=== PATIENT | male | born 1985 ===

== ENCOUNTER 2018-08-02 14:24 | Emergency (ER) | payer OTHER ==
[2018-08-02 14:38] VITALS: BP 140/89
--- NOTE | 2018-08-02 15:17 | ED ---
Skin Complaint - HPI Summary HPI Summary: Patient presents with laceration to lower forehead at about 1300 today. 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 He had mild bleeding which stopped after cleaning and applying pressure. He does have mild soreness and focal tenderness in the area with touch only. Denies loss of consciousness, change in headache (had a headache when he woke up this morning), change in vision, nausea, vomiting, numbness, tingling, weakness, dizziness, near- syncope. He has not tried any [id number] pain medication or ice but he reports he did wash this with alcohol after injury. His immunizations are up-to -date. No other injuries nor symptoms to report. - History of Current Complaint Chief Complaint: UCLaceration Time Seen by Provider: 08/02/18 14:58 Stated Complaint: FACE LAC Hx Obtained From: Patient Pain Intensity: 0 - Allergy/Home Medications Allergies/Adverse Reactions: Allergies Allergy/AdvReac Type Severity Reaction Status Date / Time No Known Allergies Allergy Verified 08/02/18 14:38 Home Medications: Home Medications NK [No Home Medications Reported] 08/02/18 [History Confirmed 08/02/18] PMH/Surg Hx/FS Hx/Imm Hx Previously Healthy: Yes Endocrine/Hematology History: Denies: Hx Anticoagulant Therapy, Hx Blood Disorders, Hx Diabetes, Hx Thyroid Disease, Autoimmune Disease Cardiovascular History: Denies: Hx Hypertension Respiratory History: Denies: Hx Asthma, Hx Chronic Obstructive Pulmonary Disease (COPD) GI History: Denies: Hx Ulcer - Surgical History Surgery Procedure, Year, and Place: vericose vein on groin - Immunization History Immunizations Up to Date: Yes Infectious Disease History: No Infectious Disease History: Denies: Hx Hepatitis, Hx Human Immunodeficiency Virus (HIV), Hx of Known/ Suspected MRSA, Traveled Outside the [place] in Last 30 Days - Social History 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[employer]) Lives: With Family Alcohol Use: Occasionally Hx Substance Use: No Substance Use Type: Reports: None Hx Tobacco Use: No Smoking Status (MU): Never Smoked Tobacco Review of Systems Constitutional: Negative Negative: Fatigue Eyes: Negative Negative: Photophobia, Blurred Vision, Diplopia ENT: Negative Negative: Epistaxis Gastrointestinal: Negative Negative: Nausea Positive: no symptoms reported Musculoskeletal: Negative Skin: Other - lac/abrasion Positive: Headache - has had since this morning - no change since injury Psychological: Normal All Other Systems Reviewed And Are Negative: Yes Physical Exam Triage Information Reviewed: Yes Vital Signs On Initial Exam: Initial Vitals Temp Pulse Resp BP Pulse Ox 97.9 F 88 18 140/89 98 08/02/18 14:34 08/02/18 14:34 08/02/18 14:34 08/02/18 14:34 08/02/18 14:34 Vital Signs Reviewed: Yes Appearance: Positive: Well-Appearing, No Pain Distress, Well-Nourished Skin: Positive: Warm, Skin Color Reflects Adequate Perfusion, Dry - 0.25cm linear abrasion lower central forehead/just superior to bridge of nose - scabbed - no active bleeding despite tissue manipulation; focal area with mild TTP Head/Face: Positive: Normal Head/Face Inspection Eyes: Positive: Normal, EOMI, JOHN - no photophobia, Conjunctiva Clear ENT: Positive: Normal ENT inspection, Hearing grossly normal, Pharynx normal, TMs normal. Negative: Nasal drainage Neck: Positive: Supple Respiratory/Lung Sounds: Positive: Breath Sounds Present Cardiovascular: Positive: Normal Musculoskeletal: Positive: Normal, Strength/ROM Intact Neurological: Positive: Normal, Sensory/Motor Intact, Alert, Oriented to Person Place, Time, CN Intact II-III Psychiatric: Positive: Normal - concerned but calm, polite, cooperative Diagnostics - Vital Signs Vital Signs Temp Pulse Resp BP Pulse Ox 08/02/18 14:34 97.9 F 88 18 140/89 98 - Laboratory Lab Statement: Any lab studies that have been ordered have been reviewed, and results considered in the medical decision making process. Course/Dx - Course Course Of Treatment: cleaned area with alcohol and triple anbx ointment applied. Reviewed danger s/sx of when to seek further care. Pt agrees w/ plan. - Diagnoses Provider Diagnoses: Facial abrasion Discharge - Sign-Out/Discharge Documenting (check all that apply): Patient Departure All imaging exams completed and their final reports reviewed: No Studies - Discharge Plan Condition: Stable Disposition: HOME Patient Education Materials: Facial Laceration (ED) Referrals: [facility] [Outside] Additional Instructions: Gently wash wound with soap and water, rinse well and pat dry with clean cloth. Reapply triple antibiotic ointment and bandaid as desired. Continue this daily until wound is healed. Call your PCP to schedule wound recheck if you have concerns (may follow-up with [facility]). * If you develop redness, swelling, streaking, purulent drainage, fevers or chills, seek medical attention sooner or return to the emergency department. *If you develop change in vision, vomiting, dizziness, numbness, weakness, go to ED - Billing Disposition and Condition Condition: STABLE Disposition: Home
== END 2018-08-02 15:31 | disposition home or self-care (01) ==
LOC: UCEAST 14:24
DX: S00.81XA Abrasion of other part of head, initial encounter (principal); W22.8XXA Striking against or struck by other objects, initial encounter; Y92.9 Unspecified place or not applicable
CPT/HCPCS: 99201; G0463

== ENCOUNTER 2018-12-28 10:07 | Day surgery (SDC) | payer OTHER ==
[~2018-12-28 10:07] MED LIST: Buffered Lidocaine 1% SYRIN* 1 ML/SYRINGE INTRADERM ONE; Lactated Ringers 1000 ML Bag* 1,000 ML IV SCH
[2018-12-28] MEDS ORDERED: ceFAZolin 2 GM PREMIX in ORs 2 GM/50 ML BAG ONE (10:21)
[2018-12-28] MEDS ORDERED: Buffered Lidocaine 1% SYRIN* 1 ML/SYRINGE INTRADERM ONE (10:21)
[2018-12-28] MEDS ORDERED: Bupivacaine 0.25% W/EPI* 10 ML SDV ONE (12:19)
[2018-12-28] MEDS ORDERED: Ondansetron INJ* 2 MG/ML VIAL ONE (12:36)
[2018-12-28] MEDS ORDERED: Propofol* 10 MG/ML 20 ML BTL ONE ×2 (12:36→13:49)
[2018-12-28] MEDS ORDERED: Dexamethasone IV* 4 MG/ML 1 ML (4 MG) ONE (12:36)
[2018-12-28] MEDS ORDERED: fentaNYL* 50 MCG/ML 2 ML VIAL (100 MCG VIAL) ONE ×2 (12:36→15:07)
[2018-12-28] MEDS ORDERED: Midazolam* 1 MG/ML 5 ML VIAL (5 MG) ONE (12:37)
[2018-12-28] MEDS ORDERED: Rocuronium* 10 MG/ML VIAL ONE (12:38)
[2018-12-28] MEDS ORDERED: Ondansetron INJ* 2 MG/ML VIAL IV PRN (14:02)
[2018-12-28] MEDS ORDERED: DiMENhydriNATE IV* 50 MG/ML VIAL IV PUSH PRN (14:02)
[2018-12-28] MEDS ORDERED: Naloxone* 0.4 MG/ML 1 ML VIAL IV PRN (14:02)
[2018-12-28] MEDS ORDERED: HYDROmorphone INJ1* 1 MG/ML SYRINGE IV PRN (14:02)
[2018-12-28] MEDS ORDERED: Ketorolac INJ* 30 MG/ML 1 ML VIAL ONE (14:36)
[2018-12-28] MEDS: fentaNYL* 50 MCG/ML 2 ML VIAL (100 MCG VIAL) IV PRN ×2 (15:08→15:25)
[2018-12-28] MEDS ORDERED: oxyCODONE/Acetamin 5/325 MG* TAB ONE ×2 (15:56→16:43)
[2018-12-28] MEDS: oxyCODONE/Acetamin 5/325 MG* TAB PO PRN ×2 (15:57→16:43)
[2018-12-28 16:19] VITALS: BP 134/85
--- NOTE | 2018-12-28 22:35 | OP ---
DATE OF OPERATION: 12/28/18 - [facility] DATE OF : 89 SURGEON: Dennis Briceno MD PHYSICIAN ASSISTANT: Radha Langley NP. ANESTHESIOLOGIST: Dr. Ramachandran. ANESTHESIA: General with local. PRE-OP DIAGNOSIS: Right inguinal hernia. POST-OP DIAGNOSIS: Right direct inguinal hernia and right indirect inguinal hernia. OPERATIVE PROCEDURE: Total extraperitoneal laparoscopic repair with mesh of both direct and indirect right inguinal hernias. ESTIMATED BLOOD LOSS: Minimal. IV FLUIDS: 100 crystalloid. SPECIMENS: None. WOUND CLASSIFICATION: I. DRAINS: None. COMPLICATIONS: None. FINDINGS: The patient had a moderate size direct inguinal hernia as well as small indirect hernia with sac extending into the internal ring, which was reduced. DESCRIPTION OF PROCEDURE: Written informed consent was obtained. The abdomen was marked with indelible ink and preoperative antibiotics were administered. The patient was taken to the operating room and placed in the supine position. Sequential compression devices and warming blanket were applied. General anesthesia was administered. A Polk catheter was inserted. The abdomen and both groins were prepped and draped in the usual sterile fashion. Time-out verification was completed. Initially, 0.5% Marcaine was infiltrated just below the umbilicus. A right transverse incision was made and the right rectus anterior fascia was identified and divided transversely. The medial aspect of the muscle body was retracted laterally to expose the posterior rectus sheath and the retrorectus space was then developed and the Spacemaker balloon was passed carefully inferiorly until it opposed the pubic tubercle. We then inflated the balloon with approximately 15 squeezes of the hand balloon pump under direct vision of the camera to expose the extraperitoneal space. The balloon was then removed and a 12-mm blunt port was inserted and the extraperitoneal space was insufflated to 12 mmHg. The patient was placed in Trendelenburg position and under direct vision, two 5 mm ports were placed in the lower midline of the abdomen under direct vision into the extraperitoneal space. The anatomy was subsequently identified. The pubic tubercle and Jose Alfredo's ligament on the left were exposed. Likewise, the right-sided Jose Alfredo's ligament was identified. We identified the epigastric vessels as I entered the anterior abdominal wall and these were protected from injury. Likewise, the lateral anterior abdominal wall along the iliotibial tract was developed using blunt dissection through the connective tissue. We then identified the peritoneal reflection laterally and worked medially. We followed the peritoneal reflection into an internal indirect sac, which was reduced from the internal ring. There was some scar tissue most likely from previous varicocelectomy and I did make several small rents in the peritoneum but under direct vision, I clipped these with a 5 mm Hemoclip to prevent leakage of pneumoperitoneum without difficulty. Once the indirect sac had been reduced, the direct space was then evaluated. This hernia had been reduced with the insufflation and it was fairly broad based. Hemostasis was assured. Next, a 10 x 15 cm self-gripping Covidien ProGrip mesh was then placed into the space and used to cover the direct and indirect spaces with generous overlap across the midline to the left Jose Alfredo's ligament as well as laterally almost just about to the iliac crest. Care was taken to evaluate the peritoneum posteriorly along the retroperitoneum and this was well superior to the edge of the inferior portion of the mesh. The direct space and indirect space were covered nicely and generously. There was no wrinkling of the mesh. Hemostasis was assured. The extraperitoneal space was desufflated under direct vision and the mesh was held in position. The blunt port was removed. The anterior rectus fascia was closed interrupted 0 Vicryl suture. The skin at all 3 incisions was approximated with subcuticular 4-0 Vicryl. Steri-Strips were applied. The patient tolerated the procedure well and was taken to the recovery room in stable condition. [id number]/[facility] #: [id number] FERNIE
== END 2018-12-28 16:52 | disposition home or self-care (01) ==
LOC: OR 10:07
PROVIDERS: ATTEND Surgery
DX: K40.90 Unilateral inguinal hernia, without obstruction or gangrene, not specified as recurrent (principal)
CPT/HCPCS: A9270-GY; C1781; J0690; J1100; J1885; J2250; J2405; J2704; J3010